=== PATIENT | male | born 1980 | race Caucasian/White ===

== ENCOUNTER 2022-07-08 10:17 | Emergency (ER) | payer SELFPAY ==
[2022-07-08 11:43] LABS: CARBON DIOXIDE,CO2 27.7 mmol/L (21.0-32.0); POTASSIUM,K 4.3 mmol/L (3.5-5.1)
== END 2022-07-08 12:02 | disposition home or self-care (01) ==
LOC: MW.ED 10:17
DX: S76.111A Strain of right quadriceps muscle, fascia and tendon, initial encounter (principal); Z88.5 Allergy status to narcotic agent; Z88.0 Allergy status to penicillin
CPT/HCPCS: 36415; 80048; 85027; 85379; 99283